=== PATIENT | male | born 1950 | race Caucasian/White ===

== ENCOUNTER 2019-03-04 15:25 | Emergency (ER) | payer BC, OTHER ==
--- NOTE | 2019-03-04 15:31 | PDOC ---
Rapid Medical Evaluation Time Seen by Provider: 03/04/19 15:27 Medical Evaluation: Allergies Allergy/AdvReac Type Severity Reaction Status Date / Time No Known Allergies Allergy Verified 02/07/18 13:01 03/04/19 15:27 I have performed a brief in-person evaluation of this patient. The patient presents with a chief complaint of:Possible rectal abscess per family. No f/c. Heavy lifting recently per family. H/o HLD Pertinent physical exam findings:Stable and in NAD, will defer exam to ED provider I have ordered the following:nothing The patient will proceed to the ED for further evaluation. Discharge Disposition - Diagnosis Rectal pain - Discharge Dispostion Condition at time of disposition: Worsened - Referrals - Patient Instructions - Post Discharge Activity
[2019-03-04 15:32] VITALS: BP 155/58; PULSE 60; TEMP 98.2; BMI 28.2
--- NOTE | 2019-03-04 16:39 | PDOC ---
History of Present Illness - General Chief Complaint: Abscess Boil Stated Complaint: BOIL ON BUTTOCK Time Seen by Provider: 03/04/19 15:27 History Source: Family Exam Limitations: No Limitations - History of Present Illness Initial Comments: 03/04/19 16:33 68 yo M w/ a h/o HTN comes in c/o rectal pain since yesterday. He does a lot of yardwork, pushes and pulls heavy machinery. denies constipation, no fever/chills , no NVD, no abdominal pain, no headache/dizziness. NO other complaints today. NO prior h/o similar symptoms. Past History - Past Medical History Allergies/Adverse Reactions: Allergies Allergy/AdvReac Type Severity Reaction Status Date / Time No Known Allergies Allergy Verified 02/07/18 13:01 Home Medications: Ambulatory Orders Atorvastatin Ca [Lipitor -] 20 mg PO HS 08/26/15 Prednisone 10 mg PO DAILY 4 Days #4 tab.ds.pk 01/26/18 Cephalexin [Keflex] 250 mg PO QID #28 capsule 02/07/18 Polymyxin B Sulf/Trimethoprim [Polymyxin B-Tmp Eye Drops] 2 drop OS QID #1 bottle 02/07/18 Hydrocortisone 2.5% Topical Cr [Anusol 2.5% Hc Cream -] 1 applic RC BID #1 tube 03/04/19 COPD: No Hypercholesterolemia: Yes - Surgical History Abdominal Surgery: Yes (HERNIA X 2) - Immunization History Td Vaccination: No TDAP Vaccination: No Immunization Up to Date: No - Suicide/Smoking/Psychosocial Hx Smoking Status: No Smoking History: Never smoked Years of Tobacco Use: 10 Have you smoked in the past 12 months: No Number of Cigarettes Smoked Daily: 0 Information on smoking cessation initiated: No Hx Alcohol Use: No Drug/Substance Use Hx: No Substance Use Type: None Review of Systems - Review of Systems Able to Perform ROS?: Yes Constitutional: No: Chills, Fever, Malaise, Night Sweats HEENTM: No: Eye Pain, Recent change in vision, Throat Pain Respiratory: No: Cough, Shortness of Breath Cardiac (ROS): No: Chest Pain, Palpitations, Chest Tightness ABD/GI: No: Diarrhea, Nausea, Vomiting, Abdominal cramping : No: Dysuria, Hematuria Musculoskeletal: No: Back Pain Integumentary: No: Rash Neurological: No: Headache, Numbness, Dizziness Psychiatric: No: Change in Appetite Endocrine: No: Unexplained Weight Loss *Physical Exam - Vital Signs Last Vital Signs Temp Pulse Resp BP Pulse Ox 98.2 F 60 16 155/58 L 97 03/04/19 15:29 03/04/19 15:29 03/04/19 15:29 03/04/19 15:29 03/04/19 15:29 - Physical Exam General Appearance: Yes: Nourished. No: Apparent Distress HEENT: positive: Normal Voice. negative: Pale Conjunctivae, Scleral Icterus (R) , Scleral Icterus (L) Neck: positive: Supple. negative: Decreased range of motion, Tender midline Respiratory/Chest: negative: Respiratory Distress, Accessory Muscle Use Cardiovascular: positive: Regular Rate Gastrointestinal/Abdominal: positive: Normal Bowel Sounds, Soft. negative: Tender Rectal Exam: positive: other ((+)external non thrombosed 2cm hemorrhoid, reduced upon exam without complications) Musculoskeletal: positive: Normal Inspection. negative: CVA Tenderness, Decreased Range of Motion Extremity: positive: Normal Capillary Refill, Normal Inspection, Normal Range of Motion. negative: Tender, Pedal Edema Integumentary: positive: Normal Color, Dry. negative: Jaundice, Rash Neurologic: positive: Fully Oriented, Alert, Normal Mood/Affect Medical Decision Making - Medical Decision Making 03/04/19 16:35 68 yo M w/ hemorrhoid, reduced on exam. WIll dishcarge with anusol and PMD follow up High fiber diet recommended. No pushing/pulling/straining/heavy lifting. Return for worsening/concerning symptoms Pgt and daughter verbalize understanding and agree with plan. *DC/Admit/Observation/Transfer Diagnosis at time of Disposition: Rectal pain, External hemorrhoid - Discharge Dispostion Disposition: HOME Condition at time of disposition: Stable - Referrals - Patient Instructions Printed Discharge Instructions: DI for Hemorrhoids Additional Instructions: High fiber intake, no pushing/pulling/straining. Please make a follow up appt with your PMD this week. Return for worsening/concerning symptoms. - Post Discharge Activity
== END 2019-03-04 16:45 | disposition home or self-care (01) ==
LOC: JERFT 15:25
PROC: 3E033TZ Introduction of Destructive Agent into Peripheral Vein, Percutaneous Approach (ICD-10-PCS; principal; 2019-03-04)
DX: K64.4 Residual hemorrhoidal skin tags (principal)
CPT/HCPCS: 99281-25